=== PATIENT | male | born 1955 ===

== ENCOUNTER 2020-05-25 11:00 | Inpatient (IN) | payer OTHER ==
[~2020-05-25] VITALS: Ht 172.7 cm; Wt 74.8 kg
[2020-05-25] MEDS ORDERED: ZESTRIL20 MG PO (15:45)
[2020-05-25] MEDS ORDERED: FORTAMET1000 MG PO (15:45)
[2020-05-25] MEDS ORDERED: TAMS0.4C PO (15:46)
[2020-05-25] MEDS ORDERED: SYNTHROID50 MCG PO (15:46)
[2020-05-25] MEDS ORDERED: LIPITOR40 M1 PO (15:46)
[2020-05-25] MEDS ORDERED: GRALISE600 MG PO (15:47)
[2020-05-25] MEDS ORDERED: GLIPIZIDE XL10 MG PO (15:47)
[2020-06-03] MEDS ORDERED: PERCOCET 5-3251 EACH PO (16:30)
[2020-06-03] MEDS ORDERED: DUI500 PO (16:30)
[2020-06-03] MEDS ORDERED: ELIQUIS2.5 MG PO (16:30)
== END 2020-06-03 17:06 | DRG 470 ==
LOC: O/R 06-01 05:30 → SURG 06-01 05:30 → SURH 06-01 11:00 → SURG 06-02 11:04
PROVIDERS: ADMIT Orthopaedic Surgery; ATTEND Orthopaedic Surgery
PROC: 0SRC0J9 Replacement of Right Knee Joint with Synthetic Substitute, Cemented, Open Approach (ICD-10-PCS; principal; 2020-06-01 12:30)
DX: M17.11 Unilateral primary osteoarthritis, right knee (principal); D62 Acute posthemorrhagic anemia; E11.9 Type 2 diabetes mellitus without complications; I10 Essential (primary) hypertension

== ENCOUNTER → 2020-05-31 09:08 | Outpatient (CLI) | payer OTHER ==
[~2020-05-31 09:08] MED LIST: DUI500 PO; ELIQUIS2.5 MG PO; FORTAMET1000 MG PO; GLIPIZIDE XL10 MG PO; GRALISE600 MG PO; LIPITOR40 M1 PO; PERCOCET 5-3251 EACH PO; SYNTHROID50 MCG PO; TAMS0.4C PO; ZESTRIL20 MG PO
== END | disposition home or self-care (01) ==
LOC: PPH VACUNA 09:08
DX: Z23 Encounter for immunization (principal)

== ENCOUNTER 2020-06-21 17:45 | Outpatient (CLI) | payer OTHER | END 2020-06-21 17:46 | disposition home or self-care (01) | LOC: PPH VACUNA 17:45 | DX: Z23 Encounter for immunization (principal) ==